=== PATIENT | female | born 1975 | race African-American/Black ===

== ENCOUNTER 2025-03-11 05:59 | Day surgery (SDC) | payer BC, SELFPAY ==
[2025-03-11] VITALS (13 sets, daily range): BP systolic 124–147; BP diastolic 70–104; PULSE 72–95; RESP 14–18; TEMP 36.1–36.4; O2SAT 92–97; BMI 38.2
[2025-03-11] MEDS: 0.9% Normal Saline (1000mL) 1,000 ML 15 ML IV (06:44)
--- NOTE | 2025-03-11 07:10 | PCM.PRE.AN2 ---
ASA Classification* ASA Classification ASA Classification: 2 Assessment & Plan Anesthesia* Anesthesia Assessment Anesthesia Assessment: Discussed sedation and/or anesthesia options, risks, benefits, and alternatives with patient/parents/legal guardian/POA. Questions invited. The patient/parents/legal guardian/POA seems to understand and agrees to proceed with anesthesia plan. Reviewed the physical assessment, medical history, allergy history and patient home medications list prior to surgery/procedure/anesthetic and documented any changes. Performed airway and anesthesia risk assessments. 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 When Was Last Pacemaker Check QUESTION #4 FULL TEXT: You/Your Family Experience fever (hyperthermia) with Anesthesia Any additional information?: No Last Oral Intake Last Oral intake: Last Oral Intake NPO since 00:00 03/11/25 06:38 Meds taken in AM with sips of No 03/11/25 06:38 water? 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 Female Yes 02/26/25 15:08 HX of Motion Sickness No 02/26/25 15:08 HX of N/V After Surgery No 02/26/25 15:08 Non-Smoker Yes 02/26/25 15:08 Duration of Surgery greater Yes 02/26/25 15:08 than 60 minutes Number of Risk Factors 3 02/26/25 15:08 PONV Score Moderate Risk 02/26/25 15:08 Any additional information?: No Height & Weight Height & Weight: Anesthesia: Height & Weight Height 5 ft 2 in 03/11/25 06:38 Weight: 95 kg 03/11/25 06:38 Body Mass Index (BMI) 38.2 03/11/25 06:38 Respiratory Assessment Respiratory Assessment - toy electric train repairer: Respiratory Tract Infection Hx - toy electric train repairer Hx Respiratory Tract Infection Yes: RESP FLU/TREATED/ 02/26/25 15:08 RESOLVED Any additional information?: No STOP Sleep Apnea STOP Sleep Apnea - toy electric train repairer: STOP Sleep Apnea - toy electric train repairer Hx Hypertension No 02/26/25 15:08 Hx Sleep Apnea No 02/26/25 15:08 CPAP BIPAP Do you snore loudly (louder No 02/26/25 15:08 than talking or can be heard Do you often feel tired/ Yes 02/26/25 15:08 fatigued/ sleepy during daytime? Has anyone observed you stop No 02/26/25 15:08 breathing during sleep? STOP Results Negative 02/26/25 15:08 QUESTION #5 FULL TEXT : Do you snore loudly (louder than talking or can be heard through closed doors)? 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 Specify any problems Hx of Preganancy in last 3 No 02/26/25 15:08 Months Nurse Filling Out Transfusion DSCHRIBER 02/26/25 15:08 & Questions: Date: 02/26/25 02/26/25 15:08 Time: 15:10 02/26/25 15:08 Patient unable to answer at this time (ie. confused, unrespo Any additional information?: No /Reproduction History /Reproductive History - toy electric train repairer: /Reproductive Hx- toy electric train repairer Hx Now No 02/26/25 15:08 Gestational Age (in weeks): EDC: Hx Hx Para Hx Section SAB No 02/26/25 15:08 Any additional information?: No Active Medications Active Medications: Current Medications Generic Name Dose Route Start Last Admin Trade Name Freq PRN Reason Stop Dose Admin Cefazolin Sodium 2 gm/ N/A 20 mls @ 400 mls/hr 03/11/25 07:30 IV 03/11/25 07:32 PREOP ONE Sodium Chloride 1,000 mls @ 15 mls/hr 03/11/25 06:10 03/11/25 06:44 IV 03/16/25 19:29 15 mls/hr .Q48H VAZQUEZ Administration PFSH Medical History (Updated 02/26/25 @ 15:16 by Nataliya Mariscal) Wears glasses Depression Alcohol use Bladder disease Low iron Back pain Migraine headache Shortness of breath on exertion Non-smoker History of pain when walking Cancer Home Medications ?Medication ?Instructions ?Recorded ?Last Taken ?Type NK 02/26/25 Unknown History Allergy/AdvReac Type Severity Reaction Status Date / Time acetaminophen (From [place]) Allergy Intermediate Itching Verified 02/26/25 15:05 hydrocodone (From [place]) Allergy Intermediate Itching Verified 02/26/25 15:05 Surgical History (Updated 02/26/25 @ 15:16 by Nataliya Mariscal) History of lumpectomy of left breast Hx of hysterectomy Social History Smoking Status: Never smoker Review of Systems (Anesthesia) ROS Narrative System reviewed and no additional complaints, except as documented. Physical Exam Const alert and oriented x3 Orientation / Consciousness: awake Nutritional Appearance: obese HEENT dentition normal Neck full ROM Resp normal respiratory effort Cardio regular rate and regular rhythm Back/Spine normal ROM Extremity full ROM Neuro oriented x3 and moves all extremities
[2025-03-11] MEDS: Cefazolin 2 GM in Syringe IV (07:36)
[2025-03-11] MEDS: Lidocaine 1% /Epi 1:100 (20ml) 20 ML Vial (08:15)
--- NOTE | 2025-03-11 08:29 | PCM.POST.ANE ---
Anesthesia: Postop Eval I Current Vital Signs Temperature: 97.0 F Pulse Rate: 72 Blood Pressure: 129/70 Respiratory Rate: 14 Pulse Ox: 92 Oxygen Delivery Method: Room Air Assessment Airway patent: Yes Spontaneous unlabored respirations: Yes Mental status: Awake and Calm nausea: No Vomiting: No Anesthesia Complication: No Fluid Hydration Crystalloid volume administer (ml): 700 Total IV fluid infused: 700 Progress Note Post-operative progress note: patient to pacu awake on RA, spont resp Anesthesia document: Postop Eval 1 completed: Yes
--- NOTE | 2025-03-11 08:39 | DCINST_ITS ---
Discharge Instructions Diet Discharge Diet: No restrictions Activity Discharge Activity: May Shower May resume sexual activity in: 4 weeks Lifting Restrictions: 5 pounds Additional Activity Instructions:: No strenuous activity, exercise, swimming, hot tubs, tub bathing, dog walking, vacuuming for 4 weeks Dressing / Incision Call your doctor if your incision/area has: Continuous Slow Oozing, Sudden Increased Bleeding, Increased Pain/ Swelling and Foul Smelling Discharge Call your doctor if you observe: Fever of 101 or Higher, Inability to urinate and Inability to have a bowel movement Follow Up Care Please Follow Up With: Maria E Flores MD When: The office will call her to make follow-up arrangements. Test Results: Test results from this visit will be discussed in further detail at your follow- up appointment, if applicable. Discharge Plan Admission Attending Provider: Maria E Flores Primary Care Provider: Mally Swann Instructions Print Language: [place] Citizen Discharge Orders/Prescriptions Prescriptions: New cephalexin 500 mg capsule 500 mg PO Q12 3 Days Qty: 6 0RF tramadol 50 mg tablet 50 mg PO Q8H PRN (Reason: pain) 3 Days Qty: 10 0RF Referrals / Follow Up: Mally Swann DO [Primary Care Provider] - Disposition Disposition (needs filled in before D/C Order can be placed): Home, Self Care
--- NOTE | 2025-03-11 08:50 | PCM.OPRPT ---
Operative Report (Standard) Operative Information Date of Procedure: 03/11/25 Pre-Operative Diagnosis: Stress urinary incontinence, intrinsic sphincter deficiency Post-Operative Diagnosis: Same Surgery/Procedure Performed: Altis mid urethral sling, cystoscopy lining cleaner: No Type of Anesthesia: General RN Documented Start/Stop Times: Operation Date: 03/11/25 07:30 Case Time Into Pre-Op 03/11/25 06:08 Out of Pre-Op 03/11/25 07:32 Anesthesia Start 03/11/25 07:36 Into Room 03/11/25 07:36 Procedure Start 03/11/25 07:56 Procedure End 03/11/25 08:13 Anesthesia End 03/11/25 08:20 Out of Room 03/11/25 08:20 Into Recovery 03/11/25 08:24 Procedure Start Time: 07:56 Procedure Stop Time: 08:13 Select all DRAINS/GRAFTS/IMPLANTS that apply: Implanted device Implanted device details: Altis mid urethral sling Estimated Blood Loss: 10 cc Specimen collected: No Description of surgery: The patient is a 50-year-old female with stress urinary incontinence and intrinsic sphincter deficiency who presents for a sling insertion. Informed consent was obtained. She was taken to the operating room and placed on the operating room table. Anesthesia monitored the head, neck, airway, IV access and vital signs throughout the case. Once anesthesia was appropriate ministered, she was placed into the dorsolithotomy and Trendelenburg position. She was prepped and draped in usual sterile fashion. A Valentine catheter was inserted and the urinary bladder was emptied. The area overlying the urethra close to the bladder neck was infiltrated with lidocaine with epinephrine. A midline vertical incision was made approximately 1.5 cm in length. Sharp and blunt dissection was performed on either side of the urethra with care being taken to avoid entrance into the urethra or the vaginal mucosa. Using the trocars provided, the Altis mid urethral sling was placed into the transobturator complexes with care being taken to avoid interference with the vaginal mucosa. This was difficult as this created a long pathway for the sling. The sling was then positioned using the tensioning suture which was then cut. The sling laid in good position against the urethra closer to the bladder neck. The incision was then closed with running interlocking 2-0 Vicryl. No injuries to the vaginal mucosa were identified. The Valentine catheter was then removed and the cystoscope was inserted through the urethra under direct visualization into the urinary bladder. There were no foreign bodies identified within the urinary bladder, no lacerations, no hemorrhage, no mass or indication of abnormality. The location of the sling was able to be identified with appropriate coaptation of the tissue without evidence of foreign body within the urethra. At this time the cystoscope was removed. The patient was awakened and taken to the recovery room in good condition. There were no complications during this procedure. Surgical Findings: Altis sling placed closer to the bladder neck for intrinsic sphincter deficiency Complications Complications: No Admit VTE Documentation VTE Present on Admission: Yes VTE Mechan Device Prophylaxis: SCD's VTE Pharm Prophylaxis ordered?: No Reason prophylaxis not ordered: Treatment Not Indicated
--- NOTE | 2025-03-11 09:06 | POSTOPAN2_ITS ---
Anesthesia Postop Eval I Sum Postop Eval Completion status Anesthesia document: Postop Eval 1 completed: Yes Anesthesia Postop Eval I Summary Anesthesia Postop Eval I Summary: Anesthesia Postop Eval I: Assessment Summary Airway patent Yes 03/11/25 08:30 EXECUTIVE WELLNESS PROGRAMS DIRECTOR.MEDM Spontaneous unlabored Yes 03/11/25 08:30 EXECUTIVE WELLNESS PROGRAMS DIRECTOR.MEDM respirations Mental status Awake,Calm 03/11/25 08:30 EXECUTIVE WELLNESS PROGRAMS DIRECTOR.MEDM nausea No 03/11/25 08:30 EXECUTIVE WELLNESS PROGRAMS DIRECTOR.MEDM Vomiting No 03/11/25 08:30 EXECUTIVE WELLNESS PROGRAMS DIRECTOR.MEDM Anesthesia Postop Eval I: Fluid Summary Crystalloid volume administer 700 03/11/25 08:30 EXECUTIVE WELLNESS PROGRAMS DIRECTOR.MEDM (ml) Colloids volume administered ( ml) Blood Product volume administered (ml) Total IV fluid infused 700 03/11/25 08:30 EXECUTIVE WELLNESS PROGRAMS DIRECTOR.MEDM Anesthesia Postop Eval I: Summary Notes Anesthesia Complication No 03/11/25 08:30 EXECUTIVE WELLNESS PROGRAMS DIRECTOR.MEDM Anesthesia Complication Comment: Post-operative progress note patient to pacu 03/11/25 08:30 EXECUTIVE WELLNESS PROGRAMS DIRECTOR.MEDM awake on RA, spont resp Anesthesia: Postop Eval II Evaluation Mental status: Awake and Calm Pain Level: 1 nausea: No Vomiting: No
--- NOTE | 2025-03-11 09:06 | PCM.POSTANE2 ---
Anesthesia Postop Eval I Sum Postop Eval Completion status Anesthesia document: Postop Eval 1 completed: Yes Anesthesia Postop Eval I Summary Anesthesia Postop Eval I Summary: Anesthesia Postop Eval I: Assessment Summary Airway patent Yes 03/11/25 08:30 DIRECTOR OF CAMPUS RECREATION.MEDM Spontaneous unlabored Yes 03/11/25 08:30 DIRECTOR OF CAMPUS RECREATION.MEDM respirations Mental status Awake,Calm 03/11/25 08:30 DIRECTOR OF CAMPUS RECREATION.MEDM nausea No 03/11/25 08:30 DIRECTOR OF CAMPUS RECREATION.MEDM Vomiting No 03/11/25 08:30 DIRECTOR OF CAMPUS RECREATION.MEDM Anesthesia Postop Eval I: Fluid Summary Crystalloid volume administer 700 03/11/25 08:30 DIRECTOR OF CAMPUS RECREATION.MEDM (ml) Colloids volume administered ( ml) Blood Product volume administered (ml) Total IV fluid infused 700 03/11/25 08:30 DIRECTOR OF CAMPUS RECREATION.MEDM Anesthesia Postop Eval I: Summary Notes Anesthesia Complication No 03/11/25 08:30 DIRECTOR OF CAMPUS RECREATION.MEDM Anesthesia Complication Comment: Post-operative progress note patient to pacu 03/11/25 08:30 DIRECTOR OF CAMPUS RECREATION.MEDM awake on RA, spont resp Anesthesia: Postop Eval II Evaluation Mental status: Awake and Calm Pain Level: 1 nausea: No Vomiting: No
[2025-03-11] MEDS: oxyCODONE 5 MG Tablet 10 MG PO (10:51)
== END 2025-03-11 10:57 | disposition home or self-care (01) ==
LOC: SDC 06:02 → AC 06:03
PROVIDERS: PCP Family Medicine; Referring Provider Family Medicine; Visit Provider Urology
PROC: 0TJB8ZZ Inspection of Bladder, Via Natural or Artificial Opening Endoscopic (ICD-10-PCS; CPT 57288; principal; 2025-03-11 07:20)
DX: N36.42 Intrinsic sphincter deficiency (ISD) (principal); N39.3 Stress incontinence (female) (male); Z85.3 Personal history of malignant neoplasm of breast; Z90.710 Acquired absence of both cervix and uterus
CPT/HCPCS: 57288; 00860; C1771; J2405